=== PATIENT | male | born 1960 | race Caucasian/White ===

== ENCOUNTER → 2016-05-22 | Outpatient (CLI) | payer BC ==
[~2016-05-22] MED LIST: ALTEPLASE 2 MG VIAL IVP ONE; HYDROmorphONE/DILAUDID 2 MG/ML SYR ONE; IOPAMIDOL (ISOVUE-300) 100 ML BTL IV ONE; ONDANSETRON DISINTEGRATING 4 MG TAB ONE; fentaNYL 100 MCG/2 ML INJ ONE; methylPREDNISolone SOD SUCC 125 MG/2 ML VIAL ONE
--- NOTE | 2016-05-22 18:19 | US ---
Right Upper Extremity Duplex Doppler Indication: Superficial thrombophlebitis, extending down the back of the forearm. 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 This is about two we eks ago, and possibly one month ago. Technique: Right upper extremity duplex Doppler is performed, and then scanned by myself. Findings: The vein that is clotted is the basilic vein. The clot goes from the mid forearm all the way up the proximal humerus, but does not extend into the deep system. The basilic joins into the br achial at the upper humeral level. The top portion of the basilic vein is patent, and all of the denia p veins studied, including the jugular, axillary, subclavian, and brachial veins are patent. The cep halic vein is also patent. Impression: Thrombosis of the basilic vein from mid forearm to proximal humeral level. There is par tial patency at the upstream most portion of the basilic vein. Considering that this clot is at least two weeks old, if not a month old, treatment at this time is o nly targeted for symptomatic relief. It is probably not feasible to advance wire and catheter combin ation into this vein for the length of the clot, while the vein is about 3 to 4 mm in size. At this point, the best way to treat this probably is to just use a 25-gauge needle and inject the vein at se gments with TPA. Application of compression wrap afterwards may be of some help, as well. The above are discussed with the patient, who expressed understanding and agreement.
--- NOTE | 2016-05-23 09:22 | IR ---
TPA Infusion, Right Basilic Vein Venogram Foreign Body Retrieval, Right Basilic Vein Indication: Status post IV placement at the medial antecubital region about a month ago for some bloo dwork. Subsequent development of superficial thrombophlebitis, most notable along the posterior aspec t of the forearm. It is now very painful particularly in the mid forearm region. 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 Catheter-directed toya is requested. Informed consent: Obtained from the patient. Risks and benefits were discussed. Cross Cutting Measure: Patient's current list of medications including all known prescriptions, over -the-counters, herbals, and vitamin/mineral/dietary supplements are reviewed. Medications' name, dos age, frequency, and route of administration are confirmed. patient is a non-smoker. Prophylactic Antibiotic: Cefazolin was not ordered and administered for antimicrobial prophylaxis be cause it was not medically necessary. VTE Prophylaxis: There is not an order for VTE prophylaxis to be given within 24 hours of the proced ure end time. VTE prophylaxis was not given because it was not medically necessary. Technique: Patient is placed in prone position. A "timeout" procedure was performed to identify the correct patient and the correct procedure. 1% Xylocaine was used for local anesthetic. All elemen ts of maximal sterile barrier technique including cap, mask, sterile gown, sterile gloves, large ster ile sheet, hand hygiene, and 2% chlorhexidine for cutaneous antisepsis, followed. Ultrasound evaluation of potential access site was performed. After successfully identifying a patent vessel, ultrasound guidance was used to puncture the vessel. A permanent recording was created for t he patient's record. When ultrasound is used, sterile gel and probe covers are used. First, this procedure took place in the Ultrasound department. Please see detailed right upper extrem ity ultrasound in a separate report for description. Patient has superficial thrombophlebitis involvi ng the entire length of the basilic vein from distal forearm to junction with brachial vein. In the prone position, the posterior forearm vein can be easily identified. It is particularly tender to palpation at the upper forearm region, correlating to a location of bulge, and some mild subcutan eous erythema. The entire forearm actually can be felt as a cord consistent with phlebitis. Under ult rasound guidance, patent distal portion of the basilic vein was accessed with return of blood, using a micropuncture needle. To my surprise, I was able to advance a [place] wire up into the forearm region, followed by micropuncture sheath. [place] wire was then removed, and Glidewire was able to be advanced through the sheath all the way up into the axillary vein. The micropuncture sheath was then removed, and 4-[place]gas[place] 60 cm Kumpe catheter is advanced up to the ax illary vein. It is then pulled down by ultrasound guidance until it is seen to reside within clot at the proximal basilic vein. A total of 10 mg of TPA was subsequently infused across the length of this thrombosed basilic vein, d elivered in a total volume of 60 mL of saline. It is slowly pulsed in. At the end, I removed all the catheters. I did a final post lysis ultrasound, which shows echogenic l inear material that is trapped in a pigtail fashion at the most tender bulbous portion of the proxima l forearm posteriorly. Retrospective review of the [place] wire that was removed indeed shows that the d istal end of it has broken off. At this point, patient was brought upstairs to Interventional Radiology suite, and again placed in pr one position with the entire right posterior arm prepped and draped in a sterile fashion. I reaccesse d the distal basilic vein, this time placing a 6-[place] vascular sheath. Using a 15 cm Amplatz snare, under fluoroscopic guidance, the entirety of the wire fragment was removed. Post removal single shot confirmed no residual remaining foreign body. A venogram was then performed, showing that essentially the entire forearm portion of the clot has co mpletely resolved, now with a patent vein present. The above the elbow portion of the basilic vein st ill has clot. The branch that was accessed by the IV, at the antecubital region, is also identified. This branch is thrombosed, as well. External palpation at this time shows now a soft posterior aspect of the forearm, with resolution of the previously present cordlike lesion. Patient also states that his pain has significantly decreased . A moderately tight Jude wrap is applied to the forearm below the elbow to apply some degree of levi hero. Prior to removal of the sheath, I injected 125 mg of Solu-Medrol, in 20 mL volume, into the vei n to achieve some degree of anti-inflammatory effect, also to help with symptoms. Overall, patient tolerated the procedures very well. Medication: 100 mcg fentanyl, 1 mg Dilaudid. Fluoroscopy: 8.4 minutes, 12 images Impression: 1. Ultrasound-guided access into the thrombosed basilic vein, followed by TPA lysis. A total of 10 mg of TPA is laced across the thrombosed basilic vein from distal forearm to upper humerus. 2. Foreign body retrieval done under fluoroscopic guidance, as part of the [place] wire broke off. 3. Complete clot evacuation below the elbow, with subsequent significant improvement in symptoms. 4. Residual clot in the above the elbow segment of the basilic vein, with an antecubital branch ident ified that is also clotted. This will resolve over time and resorb on its own. Plan: 1. Application of Jude wrap compression dressing below the elbow today for 24 hours. 2. Remove Jude bandage after 24 hours and follow up with Dr. Calderón, as needed.
== END | disposition home or self-care (01) ==
LOC: FIMAGING 16:06
PROVIDERS: ATTEND Internal Medicine Cardiovascular Disease
PROC: B51M1ZZ Fluoroscopy of Right Upper Extremity Veins using Low Osmolar Contrast (ICD-10-PCS; principal; 2016-05-22)
PROC: 05CY3ZZ Extirpation of Matter from Upper Vein, Percutaneous Approach (ICD-10-PCS; principal; 2016-05-22)
PROC: 05HY33Z Insertion of Infusion Device into Upper Vein, Percutaneous Approach (ICD-10-PCS; principal; 2016-05-22)
PROC: 3E03317 Introduction of Other Thrombolytic into Peripheral Vein, Percutaneous Approach (ICD-10-PCS; principal; 2016-05-22)
DX: T80.1XXA Vascular complications following infusion, transfusion and therapeutic injection, initial encounter (principal); I80.8 Phlebitis and thrombophlebitis of other sites; T82.594A Other mechanical complication of infusion catheter, initial encounter
CPT/HCPCS: 36011; 37197; 37212; 75820; 93971; 99144; C1769; C1773; C1894; J1170; J1644; J2997; J3010; Q9967

== ENCOUNTER → 2017-01-20 | Outpatient (CLI) | payer BC ==
[~2017-01-20] MED LIST changes: -ALTEPLASE 2 MG VIAL IVP ONE; -HYDROmorphONE/DILAUDID 2 MG/ML SYR ONE; +IOPAMIDOL (ISOVUE 370) 100 ML BTL IV ONE; -IOPAMIDOL (ISOVUE-300) 100 ML BTL IV ONE; -ONDANSETRON DISINTEGRATING 4 MG TAB ONE; -fentaNYL 100 MCG/2 ML INJ ONE; -methylPREDNISolone SOD SUCC 125 MG/2 ML VIAL ONE
== END ==
LOC: FIMAGING 09:56
PROVIDERS: ATTEND Internal Medicine Cardiovascular Disease
DX: I71.2 Thoracic aortic aneurysm, without rupture (principal); J42 Unspecified chronic bronchitis
CPT/HCPCS: Q9967

== ENCOUNTER 2017-11-06 03:32 | Emergency (ER) | payer BC ==
[2017-11-06] MEDS ORDERED: TDAP ADULT 0.5 ML INJ (BOOSTRIX) IM ONE (03:47)
--- NOTE | 2017-11-06 05:00 | EDPHY ---
H & P Stated Complaint: r leg lac Time Seen by Provider: 11/06/17 03:48 HPI/ROS: HPI The patient presents with right jimenez laceration which was sustained just prior to arrival. He awoke after sleeping on the couch and was walking in the dark when he hit his right leg on a set of weights. He had bleeding initially which is now controlled. He denies any numbness or tingling of his leg. He does not know when his last tetanus vaccine was. REVIEW OF SYSTEMS Constitutional: No fever, no chills. Musculoskeletal: No back pain. Skin: No rashes. Neurological: No headache. PMHx: History of some sort of pulmonary dz Soc Hx: Here with his family PHYSICAL General Appearance: Alert, no distress Eyes: Pupils equal and round no pallor or injection ENT, Mouth: Mucous membranes moist Respiratory: Breathing comfortably Neurological: A&O, moves all extremities, 5/5 strength in his right leg with sensation intact to light touch Skin: Mid lower leg pretibial laceration which is vertical, gaping, measures 7.5 cm in length, does not violate fascia or tendons, 2+ DP pulses with full range of motion of toes Extremities: symmetrical, full range of motion Psychiatric: Patient is oriented X 3, there is no agitation Source: Patient Exam Limitations: No limitations - Personal History Current Tetanus/Diphtheria Vaccine: No Current Tetanus Diphtheria and Acellular Pertussis (TDAP): No - Medical/Surgical History Hx Asthma: No Hx Chronic Respiratory Disease: Yes Hx Diabetes: No Hx Cardiac Disease: No Hx Renal Disease: No Hx Cirrhosis: No Hx Alcoholism: No Hx HIV/AIDS: No Hx Splenectomy or Spleen Trauma: No Other PMH: aortic aneursym. "lung poblems" - Social History Smoking Status: Never smoked Constitutional: Initial Vital Signs Temperature (C) 36.4 C 11/06/17 03:50 Heart Rate 69 11/06/17 03:50 Respiratory Rate 18 11/06/17 03:50 Blood Pressure 150/97 H 11/06/17 03:50 O2 Sat (%) 93 11/06/17 03:50 O2 Delivery Mode Room Air Allergies/Adverse Reactions: No Known Allergies Allergy (Verified 04/19/15 13:42) Home Medications: Medication Instructions Recorded predniSONE 1 mg PO 04/19/15 Medical Decision Making Procedures: LACERATION REPAIR Procedure: Laceration repair. Verbal consent was obtained from the patient. The linear 8 cm laceration on the jimenez was anesthetized using bupivacaine 0.5% with epinephrine. The wound was scrubbed, draped and explored to its base with a gloved finger. There were no deep structures involved. No tendon injury was identified. The wound required extensive debridement . The wound was repaired with for 4-0 Vicryl deep dermal simple interrupted sutures followed by 9 3-0 Prolene horizontal mattress sutures. The wound repair was complex. The procedure was performed by myself. Differential Diagnosis: 57-year-old healthy man presents after sustaining laceration to his right jimenez just prior to arrival. He hit his jimenez on a dumbbell in the dark. He has sustained a large gaping laceration which will require repair. He is neurovascularly intact and does not appear to have any tendon injuries. We will update his tetanus vaccine. Differential diagnosis includes laceration, tendon injury, wound infection. The wound was repaired in the emergency department after copious irrigation. I have counseled the patient on wound care. He will return in 9 days for suture removal. - Data Points Medications Given: Discontinued Medications Diphtheria/Tetanus/Acell Pertussis (Boostrix) 0.5 ml IM .ONCE ONE Stop: 11/06/17 03:48 Last Admin: 11/06/17 03:53 Dose: 0.5 ml Departure - Departure Disposition: Home, Routine, Self-Care Clinical Impression: Laceration of right lower leg Condition: Good Instructions: Care For Your Stitches (ED), Laceration (ED) Additional Instructions: Your sutures should be removed November 15. You should come to the emergency department for this. Please keep the dressing in place for the next 48 hr. It is then okay to get the wound wet in the shower. Avoid swimming or submerging her leg and water. Keep antibiotic ointment and a bandage on the wound at all times. Monitor your wound for any redness, swelling, increased pain, drainage. If you experience any of this you should come back to the emergency department for a wound check. Referrals: NONE *PRIMARY CARE P,. [Primary Care Provider] - As per Instructions
[2017-11-15 10:44] VITALS: BP 151/93
--- NOTE | 2017-11-15 10:46 | EDPHY ---
ED Progress Note Narrative: 10:30 a.m.: The patient presents for scheduled suture removal 11/15/2017. The patient has had pain and redness around the area of the sutures. It is extremely painful to walk especially when he initially stands up. He states however that the redness and the pain has improved over the last 24-48 hours. On examination the patient has mattress sutures in place with some serous drainage. There is surrounding redness and some warmth and tenderness with palpation especially more on the anterior lateral aspect of his right leg. There is no lymphangitis. He has no pain in his right knee. He denies pain in his groin. He does have some residual swelling in his ankle although no redness and full range of motion of the ankle. He has no pain with dorsi or plantar flexion. The patient was very hesitant to take antibiotics, however I recommended starting Keflex today. His sutures were removed and Steri-Strips were placed. I encouraged elevating his leg. He was given strict instructions and precautions to return to the emergency department immediately if he developed redness beyond the lines of demarcation, lymphangitis, fever, increasing pain, or if he felt worse in any way.
== END 2017-11-06 05:18 | disposition home or self-care (01) ==
PROC: 0HQKXZZ Repair Right Lower Leg Skin, External Approach (ICD-10-PCS; principal; 2017-11-06)
DX: S81.811A Laceration without foreign body, right lower leg, initial encounter (principal); W22.8XXA Striking against or struck by other objects, initial encounter; Y92.89 Other specified places as the place of occurrence of the external cause; Y99.8 Other external cause status; Y93.01 Activity, walking, marching and hiking; Z23 Encounter for immunization